=== PATIENT | female | born 2000 | race Caucasian/White ===

== ENCOUNTER 2021-02-19 13:09 | Emergency (ER) | payer BC ==
[~2021-02-19] VITALS: Ht 170.2 cm; Wt 56.8 kg
[2021-02-19 13:19] VITALS: BP 135/86; TEMP 98.5
[2021-02-19] MEDS ORDERED: BLISOVI FE 1-21 EACH PO (13:22)
[2021-02-19] MEDS ORDERED: ZITHROMAX Z PA250 MG PO (13:51)
[2021-02-19 14:12] VITALS: PULSE 88
== END 2021-02-19 14:09 | disposition home or self-care (01) ==
LOC: COL.ER 13:09
DX: J06.9 Acute upper respiratory infection, unspecified (principal); Z20.822 Contact with and (suspected) exposure to COVID-19